=== PATIENT | male | born 1990 ===

== ENCOUNTER 2020-10-05 17:00 | Outpatient (REF) | payer SELFPAY ==
[2020-10-07 12:53] LABS: COVID-19 RT-PCR UVMMC Result Negative (Negative)
== END 2020-10-05 17:01 | disposition home or self-care (01) ==
LOC: NCHCN 17:00
PROVIDERS: Visit Provider Family Medicine
DX: J06.9 Acute upper respiratory infection, unspecified (principal); Z20.822 Contact with and (suspected) exposure to COVID-19
CPT/HCPCS: U0003